=== PATIENT | male | born 1970 | race African-American/Black ===

== ENCOUNTER 2021-09-11 01:41 | Emergency (ER) | payer OTHER ==
[~2021-09-11] VITALS: Ht 182.9 cm; Wt 110.0 kg
[2021-09-11 02:27] VITALS: BP 155/103
== END 2021-09-11 10:15 | disposition left against medical advice (07) ==
LOC: ER 01:41
DX: Z53.21 Procedure and treatment not carried out due to patient leaving prior to being seen by health care provider (principal)
CPT/HCPCS: 99281